=== PATIENT | male | born 1970 | race Caucasian/White ===

== ENCOUNTER 2016-07-17 14:01 | Emergency (ER) | payer BC ==
[2016-07-17 14:08] VITALS: BP 139/92
[2016-07-17] MEDS ORDERED: EFFEXOR XR150 M1 PO (14:11)
== END 2016-07-17 14:50 | disposition home or self-care (01) ==
LOC: ED 14:01
DX: S61.210A Laceration without foreign body of right index finger without damage to nail, initial encounter (principal); W26.8XXA Contact with other sharp object(s), not elsewhere classified, initial encounter; Y99.0 Civilian activity done for income or pay